=== PATIENT | female | born 1960 | race Caucasian/White ===

== ENCOUNTER 2016-07-22 09:27 | Day surgery (SDC) | payer OTHER ==
[~2016-07-22] VITALS: Ht 167.6 cm; Wt 91.6 kg
[~2016-07-22 09:27] MED LIST: 0.9% Sodium Chloride 1,000 ML IV SCH; CHOL500050 PO; DEXT1DRO8 BOTH_EYES; LISI2.5T PO; METF750T2 PO; NPR500T PO; OMPR20CCR PO; Sodium Chloride LOK Flush 10 mL Syringe IV PRN; TRAM50TA2 PO; fentaNYL-PF 50 mCg/mL 2 mL Inj IVPUSH PRN
[2016-07-22] MEDS ORDERED: EZET10TA27 PO (10:01)
[2016-07-22 10:05] VITALS: BP 127/82; PULSE 72; RESP 16; O2SAT 96
--- NOTE | 2016-07-22 10:56 | PCM.ENDEGD ---
EGD Date of Service: Jul 22, 2016 Physician Floyd Don MD Pre Procedure Diagnosis: Abdominal pain Post Procedure Dx & Findings: Gastritis fundic polyps Procedure Esophagogastroduodenoscopy PROCEDURE IN DETAIL: After proper sedation, Olympus video endoscope was inserted into patient's mouth and esophagus was successfully intubated. Scope introduced esophagus. Esophagus showed normal shiny whitish mucosa consistent with squamous cell component. Z line was intact at 35 cm from the incisors. Scope further advanced to the stomach. Stomach showed normal shiny mucosa with normal appearing rugae folds without any ulcer mass erosion in the cardia fundus body. In the fundus, there were several small 3-4 mm fundic polyps. Bleeding biopsies done. Antrum showed redness and erythema patchy consistent with gastritis biopsy obtained. Cardia fundus body antrum pylorus were all visualized. Retroflexion was done. Stomach was easily inflated and deflatable using air. Scope further events to the distal duodenum. Duodenum revealed normal villous structures with normal appearing folds without any mass ulcer erosion. Biopsies 5 done for rule out celiac disease. Impression Gastritis Fundic polyps Recommendation Await biopsies Presedation Assessment Risks and Benefits Informed consent was obtained from the patient after all risks and benefits including but not limited to drug reaction, infection, pain, bleeding, perforation, as well as alternatives were discussed. Patient monitoring Continuous pulse oximetry, cardiac monitoring, blood pressure monitoring, IV access, and oxygen at 2L per nasal cannula. Periprocedural Fentanyl: Fentanyl 100mcg Incrementally Midazolam: Midazolam 5mg Incrementally Complications There were no periprocedural complications identified. Post Procedure Plan Post Procedure Recommendations 1. Restrict activities today. 2. Resume normal activities in the morning. 3. Resume medications. 4. GERD behavioral modification: - Avoid fatty, acidic, spicy, large meals - Do not lie down after meals - Do not eat or drink anything for at least 2 1/2 hours before going to bed at night - Discontinue tobacco and alcohol - Decrease or avoid caffeine - Avoid chocolate and mints - Decrease weight - Avoid aspirin and non steroidal anti-inflammatory agents (NSAID) such as Aleve, Advil, Mobic, Naproxen, Ibuprofen, etc 5. Add proton pump inhibitor. Take 30 minutes before 1st meal of the day. 6. Patient informed of normal post procedure side effects as bloating, drowsiness, blood streaking in the stool 7. If gastric biopsy reveal H.pylori, continue with appropriate treatment 8. If small bowel biopsy reveals celiac, continue with appropriate treatment 9. Please don't hesitate to call me with any questions Floyd Don MD Jul 22, 2016 10:56
[2016-07-22 11:02] VITALS: BP 121/79; PULSE 74; RESP 12; O2SAT 93
[2016-07-22 11:11] VITALS: BP 116/80; PULSE 82; RESP 14; O2SAT 96
[2016-07-22 11:17] VITALS: BP 141/90; PULSE 82; RESP 14; O2SAT 96
--- NOTE | 2016-07-25 10:37 | PATH ---
SURGICAL PATHOLOGY Attending Physician:Floyd Don M.D. CASE STATUS: Signed Out PATIENT NAME: GABI CARPENTER PID: [id number] : 1960 DATE COLLECTED:07/22/2016 17:14 SPECIMEN: 1: Duodenum, Biopsy 2: Stomach, Polyp, Biopsy 3: Stomach, Antrum, Biopsy CLINICAL HISTORY: 1). DUODENUM BIOPSY 2). FUNDAL POLYP BIOPSY 3). ANTRUM BIOPSY FINAL DIAGNOSIS: 1.DUODENUM BIOPSY: FRAGMENTS OF NORMAL-APPEARING SMALL BOWEL MUCOSA. Normal delicate mucosal villi present. Negative for significant inflammation, dysplasia and malignancy. 2.FUNDIC POLYP BIOPSY: BENIGN FUNDIC GLAND POLYP. Negative for evidence of Helicobacter. Negative for intestinal metaplasia. Negative for dysplasia and malignancy. 3.GASTRIC ANTRUM BIOPSY: MILD CHRONIC GASTRITIS, FOCALLY ACTIVE INVOLVING ANTRAL MUCOSA WITH REACTIVE EPITHELIAL CHANGES. Immunohistochemistry for Helicobacter pending, to be reported by addendum. Negative for intestinal metaplasia. Negative for dysplasia and malignancy. ICD10 code K29.70 GROSS DESCRIPTION: The specimen is received in three formalin filled containers labeled with the patient's name. 1). The specimen is sublabeled "duodenum" and consists of 4 portions of tissue which aggregate to 0.3 x 0.3 x 0.2 CM. The specimen is entirely submitted in cassettes 1A. 2). The specimen is sublabeled "fundal polyp" and consists of 2 portions of tissue which aggregate to 0.3 with 0.3 x 0.2 CM. The specimen is entirely submitted in cassette 2A. 3). The specimen is sublabeled "antrum" and consists of 3 portions of tissue which aggregate to 0.3 x 0.3 x 0.2 CM. The specimen is entirely submitted in cassette 3A. 07/22/2016 [facility] MICRO DESCRIPTION: See diagnosis. ICD-9 CODES: CPT CODES: 1: 01625 2: 02137 3: 76122, 13898 PROCEDURE/ADDENDA: Immunohistochemistry SPI Interpretation {Not Entered} Results-Comments 3.STOMACH, ANTRUM, BIOPSY: An immunostain for Helicobacter organisms is done because of the presence of acute inflammation. The stain is negative for Helicobacter organisms. This test was developed and its performance characteristics determined by [facility]. It has not been cleared or approved by the [place]. Food and Drug Administration. The FDA has determined that such clearance or approval is not necessary. This test is used for clinical purposes. It should not be regarded as investigational or for research. Electronically Signed Out Karlo Tomas MD Electronically Signed Out Tha Cantrell MD [facility] [address], [place] [address] Technical component performed at [facility], [address], [place], [address]
== END 2016-07-22 23:59 | disposition home or self-care (01) ==
LOC: END 09:27
PROVIDERS: ATTEND Internal Medicine
DX: K29.50 Unspecified chronic gastritis without bleeding (principal); K31.7 Polyp of stomach and duodenum; R10.9 Unspecified abdominal pain; I10 Essential (primary) hypertension; E78.5 Hyperlipidemia, unspecified; E11.9 Type 2 diabetes mellitus without complications; M19.90 Unspecified osteoarthritis, unspecified site; M51.16 Intervertebral disc disorders with radiculopathy, lumbar region; M79.7 Fibromyalgia; Z90.710 Acquired absence of both cervix and uterus; Z86.010 Personal history of colon polyps; Z79.84 Long term (current) use of oral hypoglycemic drugs
CPT/HCPCS: 43239; 88305; 88342; 99152; 99153; J7030